=== PATIENT | female | born 2005 | race Caucasian/White ===

== ENCOUNTER 2023-10-17 23:07 | Emergency (ER) | payer OTHER, SELFPAY ==
[2023-10-17 23:14] VITALS: BP 101/63
[2023-10-17 23:32] VITALS: BMI 26.4
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
[2023-10-18 00:50] LABS: HCG, Serum Qualitative Screen Negative
[2023-10-18 01:28] VITALS: BP 103/65
[2023-10-18] MEDS: PERCOCET 5/325 1 TABLET PO (01:33)
== END 2023-10-18 02:16 | disposition home or self-care (01) ==
LOC: EMR 23:07
PROVIDERS: EMERGENCY PHYSICIAN Student in an Organized Health Care Education/Training Program; FAMILY PHYSICIAN Family Medicine
DX: S06.0XAA Concussion with loss of consciousness status unknown, initial encounter (principal); T14.8XXA Other injury of unspecified body region, initial encounter; M54.50 Low back pain, unspecified; M54.2 Cervicalgia; M79.605 Pain in left leg; M79.604 Pain in right leg; R20.0 Anesthesia of skin; R20.2 Paresthesia of skin; W19.XXXA Unspecified fall, initial encounter; Y93.89 Activity, other specified; Y92.89 Other specified places as the place of occurrence of the external cause; Z88.0 Allergy status to penicillin
CPT/HCPCS: 99284; 70450; 72110; 72125; 72128; 72131; 84703

== ENCOUNTER 2024-06-29 21:27 | Emergency (ER) | payer SELFPAY ==
[2024-06-29 21:43] VITALS: BP 125/74
[2024-06-30 00:56] VITALS: BP 116/58
[2024-06-30 01:00] VITALS: BP 112/86
[2024-06-30 01:03] VITALS: BMI 25.6
--- NOTE | 2024-06-30 01:04 | ED.GENMED ---
History of Present Illness
General
Chief Complaint: Headache
Source: patient and significant other
Exam Limitations: none
Time Seen by Provider: 06/30/24 00:54
Nursing documentation reviewed up to this point in time: agreed with
History of Present Illness
History of Present Illness:
19-year-old female presents emergency department complaining of a headache for the past 5 days. She took ibuprofen that did help some. She also drank caffeine she also states helped. She is nauseous at times. This is similar to prior headaches.
Past History
Past History
ED Past Medical History: Psychiatric (Bipolar) and Other (Headaches)
ED Past Surgical History: Other (Root canal)
Social History
Tobacco: Non-smoker
Alcohol: None
Drug: None
Review of Systems
Review of Systems
Allergies reviewed?: Yes
Constitutional: Reports no symptoms
EENT: Reports no symptoms
Respiratory: Reports no symptoms
Cardiac: Reports no symptoms
ABD/GI: Reports no symptoms
: Reports no symptoms
Musculoskeletal: Reports no symptoms
Skin: Reports no symptoms
Neurological: Reports headache
Endocrine: Reports no symptoms
Hematologic/Lymphatic: Reports no symptoms
Psychiatric: Reports no symptoms
Phy Exam
Physical Exam
Physical Exam:
Physical Exam
General: no apparent distress, not acutely ill
Neck: supple. no meningeal signs. normal posterior pharynx
Heart: s1/s2 regular rate and rhythm, no murmur. equal radial
pulses.
HEENT: Pupils equal round reactive to light, EOMI
Lungs: no acute respiratory distress. clear bilaterally
Abdomen: normal bowel sounds. not tender. no CVAT
Neuro: alert and oriented. no focal neurological deficits cranial nerves II through XII intact
Skin: no rash
Psychiatric: well kept. interactive and cooperative
Extremities: no edema. no calf tenderness. negative homans. good distal pulses
Course
Orders/Labs/Results
Orders:
Orders
06/30/24 01:02
IV Insert/Care/Rem.- Treatment PRN
Diphenhydramine [Benadryl] 25 mg IV NOW STA
Ketorolac [Toradol] 15 mg IV NOW STA
Metoclopramide [Reglan] 10 mg IV NOW STA
06/30/24 01:04
Test Result ONCE
06/30/24 01:20
HCG, Serum Qualitative Screen Urgent
Vital Signs
Initial and Last Documented VS:
Initial Vital Signs
Temp Pulse Resp BP Pulse Ox
98.1 F 94 20 125/74 99
06/29/24 21:43 06/29/24 21:43 06/29/24 21:43 06/29/24 21:43 06/29/24 21:43
Last Documented Vital Signs
Temp Pulse Resp BP Pulse Ox
98.1 F 94 20 112/86 100
06/29/24 21:43 06/29/24 21:43 06/29/24 21:43 06/30/24 01:00 06/30/24 01:15
MDM/Problems Addressed
Differential Diagnosis Includes:
Migraine, tension headache
MDM/Problems Addressed:
19-year-old female with headache, likely migraine. Improved after IV Toradol, Reglan and Benadryl. Doubt intracranial hemorrhage or meningitis. Stable for discharge.
*Pulse Oximetry
Patient hypoxic: no
*Critical Care Note
Total Time (30-74mins, 75-104mins- exclusive of procedures): Not Applicable
Data Reviewed
Review of Other/Old Records Reveals: Radiology Studies (Prior CT head no acute findings)
Source: records
Further Testing Considered But Not Given:
CT head not indicated
Patient Management
Social determinants of health affecting care: Living situation
Escalation/DeEscalation of care consider admission/obs:
Admission not indicated
ED Attending Note
-
Portions of this chart may have been created with voice recognition software.� Occasional wrong word or��sound alike� substitutions may have occurred due to the inherent limitations of voice recognition software.
Discharge Plan
Departure
Patient Disposition: Home (Routine Discharge)
Date of Disposition: 06/30/24
Time of Disposition: 03:54
Patient with high blood pressure during this ER visit?: No
Condition: Good
Discharge Problem:
Headache
Instructions: Headache, Adult (DC)
Prescriptions:
No Action
Prozac
30 mg PO DAILY
Referrals:
Kelli Marshall DO [Family Provider] - Call in 1-3 days for appt
Interventions
Interventions:
*Risk Screen - Suicide Last Done: 06/30/24 00:59
*General Assessment Last Done: 06/29/24 21:43
*Neglect/Abuse Screening Last Done: 06/30/24 00:59
ED- Fall Risk Assessment Last Done: 06/30/24 00:59
*ED COVID-19 Vaccine History Last Done: 06/30/24 00:59
ED- Neurological Assessment Last Done: 06/30/24 00:59
Discharge Date and Time
Print Language: BAHAMIAN
[2024-06-30] MEDS: REGLAN 10 MG IV (01:29)
[2024-06-30] MEDS: BENADRYL 25 MG IV (01:35)
[2024-06-30] MEDS: TORADOL 15 MG IV (01:38)
[2024-06-30 01:46] LABS: HCG, Serum Qualitative Screen Negative
[2024-06-30 03:00] VITALS: BP 105/63
[2024-06-30 04:12] VITALS: BP 106/66
[2024-06-30 04:21] VITALS: BP 106/66
== END 2024-06-30 04:25 | disposition home or self-care (01) ==
LOC: EMR 21:27
PROVIDERS: EMERGENCY PHYSICIAN Emergency Medicine; FAMILY PHYSICIAN Family Medicine
DX: R51.9 Headache, unspecified (principal); R11.0 Nausea; F31.9 Bipolar disorder, unspecified; F41.9 Anxiety disorder, unspecified; Z88.0 Allergy status to penicillin
CPT/HCPCS: 99284; 96374; 96375 ×2; 84703

== ENCOUNTER → 2024-12-27 13:34 | Outpatient (REF) | payer BC, SELFPAY | LOC: HWRAD 13:34 | PROVIDERS: ATTENDING PHYSICIAN Obstetrics & Gynecology; FAMILY PHYSICIAN Family Medicine | DX: Z30.431 Encounter for routine checking of intrauterine contraceptive device (principal) | CPT/HCPCS: 76830; 76856 ==